=== PATIENT | female | born 1960 | race Caucasian/White ===

== ENCOUNTER 2016-11-25 08:53 | Emergency (ER) | payer MEDICARE, OTHER ==
[~2016-11-25] VITALS: Ht 152.4 cm; Wt 60.7 kg
[2016-11-25] MEDS ORDERED: RED600CA6 PO (09:01)
[2016-11-25] MEDS ORDERED: HTN PO (09:01)
[2016-11-25] MEDS ORDERED: INSNOV SQ (09:01)
[2016-11-25] MEDS ORDERED: DIALYSIS PO (09:01)
[2016-11-25 09:50] VITALS: BP 129/67
== END 2016-11-25 09:59 | disposition home or self-care (01) ==
LOC: EMS 08:56
DX: S65.902A Unspecified injury of unspecified blood vessel at wrist and hand level of left arm, initial encounter (principal); I12.0 Hypertensive chronic kidney disease with stage 5 chronic kidney disease or end stage renal disease; E11.22 Type 2 diabetes mellitus with diabetic chronic kidney disease; N18.6 End stage renal disease; Z99.2 Dependence on renal dialysis; Z88.0 Allergy status to penicillin
CPT/HCPCS: 82962; 99282; 99284